=== PATIENT | male | born 2000 | race Two or more races ===

== ENCOUNTER 2022-08-16 13:26 | Inpatient (IN) | payer OTHER ==
[2022-08-16 14:45] VITALS: BMI 19.9
[2022-08-16] MEDS ORDERED: MAGNESIUM HYDROX 2400MG/30ML ORAL SUSPENSION 30 ML CUP PO PRN (15:53)
[2022-08-16] MEDS ORDERED: POLYETHYLENE GLYCOL (HEALTHYLAX) 3350 17 GM PACKET PO PRN (15:53)
[2022-08-16] MEDS ORDERED: guaiFENesin 200 MG/10 ML 10 ML UNIT-DOSE CUPS PO PRN (15:53)
[2022-08-16] MEDS ORDERED: ACETAMINOPHEN 325 MG TABLET (FP) PO PRN (15:53)
[2022-08-16] MEDS ORDERED: NICOTINE POLACRILEX 2 MG GUM BC PRN (15:53)
[2022-08-16] MEDS ORDERED: LOPERAMIDE HCL 2 MG CAPSULE PO PRN (15:53)
[2022-08-16] MEDS ORDERED: MAG HYDROX/AL HYDROX/SIMETH 30 ML UNIT-DOSE CUP PO PRN (15:53)
[2022-08-16] MEDS ORDERED: P-EPHED 60MG/TRIPROLIDI 2.5MG TABLET PO PRN (15:53)
[2022-08-16 17:52] LABS: HEMATOCRIT 40.2 % (35.4-49); HEMOGLOBIN 13.7 GM/dL (11.7-16.9); MCH 31.9 pg (25.7-33.7); MCHC 34.1 g/dl (32.0-35.9); MEAN CELL VOLUME 93.5 fl (80-96); MEAN PLT VOLUME 8.2 fl (7.5-11.1); PLATELET COUNT 321 10^3/uL (134-434); RBC 4.29 M/mm3 (4.00-5.60); RDW 13.9 % (11.9-15.9); WHITE BLOOD COUNT 6.3 K/mm3 (4.0-10.0)
[2022-08-16 18:07] LABS: BLOOD UREA NITROGEN 9.3 mg/dL (7-18)
[2022-08-16 18:09] LABS: CALCIUM 9.8 mg/dL (8.5-10.1)
[2022-08-16 18:10] LABS: TOT PROT 7.4 g/dl (6.4-8.2)
[2022-08-16 18:12] LABS: CREATININE 0.8 mg/dL (0.55-1.3)
[2022-08-16 18:13] LABS: BILIRUBIN,TOTAL 0.7 mg/dL (0.2-1)
[2022-08-16 18:30] LABS: SYPHILIS W/ RPR CONF NON-REACTIVE (NONREACTIVE)
[2022-08-16] MEDS ORDERED: MELATONIN 5 MG TABLETS ONE (22:34)
[2022-08-16] MEDS: THIAMINE HCL 100 MG TABLET (FP) PO SCH (22:39)
[2022-08-16] MEDS: PRENATAL VITAMINS W/ FOLIC ACID TABLET (FP) PO SCH (22:39)
[2022-08-16] MEDS: MELATONIN 5 MG TABLETS PO SCH (22:39)
[2022-08-16] MEDS ORDERED: TUBERCULIN PPD 5 TU/0.1ML VIAL ID ONE (22:55)
[2022-08-16] MEDS: NICOTINE 7 MG/24 HOURS TOPICAL PATCH TD SCH (22:57)
[2022-08-16] MEDS: NICOTINE 10 MG CARTRIDGE (INHALER) IH PRN (22:57)
[2022-08-17] MEDS ORDERED: TUBERCULIN PPD 5 TU/0.1ML VIAL ID ONE (00:24)
[2022-08-17] MEDS: NICOTINE 7 MG/24 HOURS TOPICAL PATCH TD SCH (09:49)
[2022-08-17] MEDS: PRENATAL VITAMINS W/ FOLIC ACID TABLET (FP) PO SCH (09:49)
[2022-08-17 11:07] LABS: PH,URINE 5.5 (5.0-8.0); URINE APPEARANCE CLEAR; URINE BILIRUBIN NEGATIVE (NEGATIVE); URINE COLOR YELLOW; URINE GLUCOSE (UA) NEGATIVE (NEGATIVE); URINE KETONE NEGATIVE (NEGATIVE); URINE LEUK ESTERASE NEGATIVE (NEGATIVE); URINE NITRITE NEGATIVE (NEGATIVE); URINE PROTEIN NEGATIVE (NEGATIVE); URINE UROBILINOGEN 0.2 mg/dL (0.2-1.0)
[2022-08-17] MEDS: THIAMINE HCL 100 MG TABLET (FP) PO SCH (21:15)
[2022-08-17] MEDS: MELATONIN 5 MG TABLETS PO SCH (21:15)
[2022-08-17] MEDS: hydrOXYzine PAMOATE 25 MG CAPSULE (FP) PO PRN (21:15)
[2022-08-18] MEDS: IBUPROFEN 400 MG TABLET (FP) PO PRN (05:06)
[2022-08-18] MEDS: NICOTINE 7 MG/24 HOURS TOPICAL PATCH TD SCH (11:15)
[2022-08-18] MEDS: PRENATAL VITAMINS W/ FOLIC ACID TABLET (FP) PO SCH (11:15)
[2022-08-18] MEDS: BENZOCAINE/MENTHOL (CHLORASEPTIC ) LOZENGE MM PRN (12:01)
[2022-08-18] MEDS: MELATONIN 5 MG TABLETS PO SCH (21:34)
[2022-08-18] MEDS: THIAMINE HCL 100 MG TABLET (FP) PO SCH (21:34)
[2022-08-18] MEDS: hydrOXYzine PAMOATE 25 MG CAPSULE (FP) PO PRN (21:34)
[2022-08-19] MEDS ORDERED: MELATONIN 5 MG TABLETS PO ONE (01:22)
[2022-08-19] MEDS ORDERED: hydrOXYzine PAMOATE 25 MG CAPSULE (FP) PO ONE (01:23)
[2022-08-19] MEDS: BENZOCAINE/MENTHOL (CHLORASEPTIC ) LOZENGE MM PRN (01:36)
[2022-08-19] MEDS: PRENATAL VITAMINS W/ FOLIC ACID TABLET (FP) PO SCH (10:27)
[2022-08-19] MEDS: NICOTINE 7 MG/24 HOURS TOPICAL PATCH TD SCH (10:27)
[2022-08-19] MEDS: IBUPROFEN 400 MG TABLET (FP) PO PRN (10:30)
[2022-08-19] MEDS: NICOTINE 10 MG CARTRIDGE (INHALER) IH PRN (10:33)
[2022-08-19] MEDS: hydrOXYzine PAMOATE 25 MG CAPSULE (FP) PO PRN (21:37)
[2022-08-19] MEDS: THIAMINE HCL 100 MG TABLET (FP) PO SCH (21:37)
[2022-08-19] MEDS: SUVOREXANT 10 MG TABLET PO PRN (21:39)
[2022-08-20] MEDS: NICOTINE 7 MG/24 HOURS TOPICAL PATCH TD SCH (11:08)
[2022-08-20] MEDS: PRENATAL VITAMINS W/ FOLIC ACID TABLET (FP) PO SCH (11:09)
[2022-08-20] MEDS: THIAMINE HCL 100 MG TABLET (FP) PO SCH (21:27)
[2022-08-20] MEDS: SUVOREXANT 10 MG TABLET PO PRN (21:28)
[2022-08-21] MEDS: NICOTINE 7 MG/24 HOURS TOPICAL PATCH TD SCH (10:34)
[2022-08-21] MEDS: PRENATAL VITAMINS W/ FOLIC ACID TABLET (FP) PO SCH (10:34)
[2022-08-21] MEDS ORDERED: SUVOREXANT 10 MG TABLET PO PRN (22:00)
[2022-08-21] MEDS ORDERED: MELATONIN 5 MG TABLETS PO SCH (22:21)
[2022-08-21] MEDS: MELATONIN 5 MG TABLETS PO SCH (22:30)
[2022-08-21] MEDS: THIAMINE HCL 100 MG TABLET (FP) PO SCH (22:31)
[2022-08-22] MEDS: PRENATAL VITAMINS W/ FOLIC ACID TABLET (FP) PO SCH (10:13)
[2022-08-22] MEDS: NICOTINE 7 MG/24 HOURS TOPICAL PATCH TD SCH (10:13)
[2022-08-22] MEDS: NICOTINE 10 MG CARTRIDGE (INHALER) IH PRN (13:12)
[2022-08-22] MEDS: LACTULOSE 20 GM/30 ML UDC (FOR ORAL USE ONLY) PO SCH ×2 (13:12→21:10)
[2022-08-22] MEDS: MELATONIN 5 MG TABLETS PO SCH (21:09)
[2022-08-22] MEDS: THIAMINE HCL 100 MG TABLET (FP) PO SCH (21:10)
[2022-08-22] MEDS ORDERED: MELATONIN 5 MG TABLETS PO SCH (22:00)
[2022-08-23] MEDS: LACTULOSE 20 GM/30 ML UDC (FOR ORAL USE ONLY) PO SCH ×3 (06:29→21:40)
[2022-08-23] MEDS: PRENATAL VITAMINS W/ FOLIC ACID TABLET (FP) PO SCH (09:49)
[2022-08-23] MEDS: NICOTINE 7 MG/24 HOURS TOPICAL PATCH TD SCH (09:49)
[2022-08-23] MEDS ORDERED: ONDANSETRON *ODT* 4 MG TABLET SL PRN (11:36)
[2022-08-23] MEDS: hydrOXYzine PAMOATE 25 MG CAPSULE (FP) PO PRN (13:02)
[2022-08-23] MEDS: hydrOXYzine PAMOATE 50 MG CAPSULE (FP) PO PRN (20:15)
[2022-08-23] MEDS: THIAMINE HCL 100 MG TABLET (FP) PO SCH (21:40)
[2022-08-23] MEDS ORDERED: SUVOREXANT 15 MG TABLET PO PRN (22:00)
[2022-08-24] MEDS: LACTULOSE 20 GM/30 ML UDC (FOR ORAL USE ONLY) PO SCH ×3 (06:28→22:17)
[2022-08-24] MEDS: NICOTINE 7 MG/24 HOURS TOPICAL PATCH TD SCH (10:00)
[2022-08-24] MEDS: PRENATAL VITAMINS W/ FOLIC ACID TABLET (FP) PO SCH ×2 (10:00→10:24)
[2022-08-24] MEDS: NICOTINE 10 MG CARTRIDGE (INHALER) IH PRN (13:44)
[2022-08-24] MEDS ORDERED: SUVOREXANT 15 MG TABLET PO PRN (22:00)
[2022-08-24] MEDS: THIAMINE HCL 100 MG TABLET (FP) PO SCH (22:17)
[2022-08-24] MEDS: hydrOXYzine PAMOATE 50 MG CAPSULE (FP) PO PRN (22:19)
[2022-08-24] MEDS: SUVOREXANT 10 MG TABLET PO PRN (22:22)
[2022-08-25] MEDS: LACTULOSE 20 GM/30 ML UDC (FOR ORAL USE ONLY) PO SCH ×3 (06:12→22:03)
[2022-08-25] MEDS: NICOTINE 7 MG/24 HOURS TOPICAL PATCH TD SCH (10:01)
[2022-08-25] MEDS: PRENATAL VITAMINS W/ FOLIC ACID TABLET (FP) PO SCH (10:01)
[2022-08-25] MEDS: THIAMINE HCL 100 MG TABLET (FP) PO SCH (22:03)
[2022-08-25] MEDS: SUVOREXANT 10 MG TABLET PO PRN (22:03)
[2022-08-25] MEDS: hydrOXYzine PAMOATE 50 MG CAPSULE (FP) PO PRN (22:04)
[2022-08-26] MEDS: LACTULOSE 20 GM/30 ML UDC (FOR ORAL USE ONLY) PO SCH ×3 (06:11→22:15)
[2022-08-26 07:55] VITALS: RESP 16
[2022-08-26] MEDS: NICOTINE 7 MG/24 HOURS TOPICAL PATCH TD SCH (10:22)
[2022-08-26] MEDS: PRENATAL VITAMINS W/ FOLIC ACID TABLET (FP) PO SCH (10:22)
[2022-08-26] MEDS: THIAMINE HCL 100 MG TABLET (FP) PO SCH (22:10)
[2022-08-26] MEDS: hydrOXYzine PAMOATE 50 MG CAPSULE (FP) PO PRN (22:12)
[2022-08-26] MEDS: SUVOREXANT 10 MG TABLET PO PRN (22:12)
[2022-08-27] MEDS: LACTULOSE 20 GM/30 ML UDC (FOR ORAL USE ONLY) PO SCH (07:00)
[2022-08-27 08:53] VITALS: BP 117/78; PULSE 85; TEMP 98
== END 2022-08-27 09:26 | disposition home or self-care (01) | DRG 772 ==
LOC: YASAS 13:26 → Y3W 21:33 → Y5N 08-19 01:03 → Y3W 08-20 11:56
PROVIDERS: ADMIT Allergy & Immunology; ATTEND Psychiatry & Neurology Pain Medicine
PROC: HZ42ZZZ Group Counseling for Substance Abuse Treatment, Cognitive-Behavioral (ICD-10-PCS; principal; 2022-08-16)
DX: F11.20 Opioid dependence, uncomplicated (principal); F14.20 Cocaine dependence, uncomplicated; F12.20 Cannabis dependence, uncomplicated; F17.210 Nicotine dependence, cigarettes, uncomplicated; F19.282 Other psychoactive substance dependence with psychoactive substance-induced sleep disorder; E72.20 Disorder of urea cycle metabolism, unspecified; B18.2 Chronic viral hepatitis C; R74.8 Abnormal levels of other serum enzymes
CPT/HCPCS: 36415; 80053; 81003; 82140; 85027; 86780; 86803; 87522; 87811; C9803-CS; Q0162; U0003; U0005

== ENCOUNTER 2023-02-21 20:04 | Inpatient (IN) | payer OTHER ==
[2023-02-21 21:22] VITALS: BMI 18.8
[2023-02-21] MEDS ORDERED: NALOXONE HCL 0.4 MG/ML VIAL IM PRN (21:45)
[2023-02-21] MEDS ORDERED: methaDONE HCL 10 MG TABLET (FOR DETOX USE ONLY) PO ONE (21:45)
[2023-02-21] MEDS ORDERED: DICYCLOMINE HCL 10 MG CAPSULE PO PRN (21:45)
[2023-02-21] MEDS ORDERED: MAGNESIUM HYDROX 2400MG/30ML ORAL SUSPENSION 30 ML CUP PO PRN (21:45)
[2023-02-21] MEDS ORDERED: BENZONATATE 200 MG CAPSULE PO PRN (21:45)
[2023-02-21] MEDS ORDERED: LOPERAMIDE HCL 2 MG CAPSULE PO PRN (21:45)
[2023-02-21] MEDS ORDERED: ACETAMINOPHEN 325 MG TABLET (FP) PO PRN (21:45)
[2023-02-21] MEDS ORDERED: guaiFENesin 600 MG TABLET.ER (FP) PO PRN (21:45)
[2023-02-21] MEDS ORDERED: NICOTINE POLACRILEX 2 MG GUM BUC PRN (21:45)
[2023-02-21] MEDS ORDERED: cloNIDine HCL 0.1 MG TABLET PO PRN (21:45)
[2023-02-21] MEDS ORDERED: BENZOCAINE/MENTHOL (CHLORASEPTIC ) LOZENGE MM PRN (21:45)
[2023-02-21] MEDS ORDERED: NALOXONE HCL (KLOXXADO) 8 MG SPRAY NS PRN (21:45)
[2023-02-21] MEDS ORDERED: IBUPROFEN 400 MG TABLET (FP) PO PRN (21:45)
[2023-02-21] MEDS ORDERED: POLYETHYLENE GLYCOL (HEALTHYLAX) 3350 17 GM PACKET PO PRN (21:45)
[2023-02-21] MEDS ORDERED: ONDANSETRON *ODT* 4 MG TABLET SL PRN (21:45)
[2023-02-21] MEDS ORDERED: MAG HYDROX/AL HYDROX/SIMETH 30 ML UNIT-DOSE CUP PO PRN (21:45)
[2023-02-21] MEDS ORDERED: IBUPROFEN 600 MG TABLET (FP) PO PRN (21:45)
[2023-02-21] MEDS ORDERED: BISMUTH SUBSALICYLATE 524 MG/30 ML PO PRN (21:45)
[2023-02-21] MEDS ORDERED: methaDONE HCL 10 MG TABLET (FOR DETOX USE ONLY) ONE (23:10)
[2023-02-21] MEDS: MELATONIN 5 MG TABLETS PO SCH (23:41)
[2023-02-21] MEDS: METHOCARBAMOL 500 MG TABLET PO PRN (23:41)
[2023-02-21] MEDS: THIAMINE HCL 100 MG TABLET (FP) PO SCH (23:41)
[2023-02-22] MEDS: PRENATAL VITAMINS W/ FOLIC ACID TABLET (FP) PO SCH (10:24)
[2023-02-22] MEDS: NICOTINE 14 MG/24 HOURS TOPICAL PATCH TD SCH (10:25)
[2023-02-22 14:00] LABS: HEMATOCRIT 44.6 % (35.4-49); HEMOGLOBIN 14.4 GM/dL (11.7-16.9); MCH 31.3 pg (25.7-33.7); MCHC 32.4 g/dl (32.0-35.9); MEAN CELL VOLUME 96.8 fl (80-96); MEAN PLT VOLUME 9.2 fl (7.5-11.1); PLATELET COUNT 263 10^3/uL (134-434); RBC 4.61 M/mm3 (4.00-5.60); RDW 13.5 % (11.9-15.9); WHITE BLOOD COUNT 7.6 K/mm3 (4.0-10.0)
[2023-02-22 14:04] LABS: POTASSIUM 4.5 mmol/L (3.5-5.1)
[2023-02-22 14:20] LABS: ALBUMIN 3.4 g/dl (3.4-5.0); CREATININE 0.6 mg/dL (0.55-1.3)
[2023-02-22 14:21] LABS: BILIRUBIN,TOTAL 0.4 mg/dL (0.2-1); BLOOD UREA NITROGEN 10.6 mg/dL (7-18)
[2023-02-22 14:22] LABS: CALCIUM 9.3 mg/dL (8.5-10.1)
[2023-02-22] MEDS: METHOCARBAMOL 500 MG TABLET PO PRN ×2 (17:11→22:16)
[2023-02-22] MEDS ORDERED: diazePAM 5 MG TABLET PO ONE (18:28)
[2023-02-22] MEDS: MELATONIN 5 MG TABLETS PO SCH (22:14)
[2023-02-22] MEDS: THIAMINE HCL 100 MG TABLET (FP) PO SCH (22:15)
[2023-02-23] MEDS ORDERED: methaDONE HCL 10 MG TABLET (FOR DETOX USE ONLY) PO ONE (10:00)
[2023-02-23] MEDS: NICOTINE 14 MG/24 HOURS TOPICAL PATCH TD SCH (10:20)
[2023-02-23] MEDS: PRENATAL VITAMINS W/ FOLIC ACID TABLET (FP) PO SCH (10:20)
[2023-02-23] MEDS: MELATONIN 5 MG TABLETS PO SCH (22:26)
[2023-02-23] MEDS: THIAMINE HCL 100 MG TABLET (FP) PO SCH (22:26)
[2023-02-24] MEDS: PRENATAL VITAMINS W/ FOLIC ACID TABLET (FP) PO SCH (10:06)
[2023-02-24] MEDS: NICOTINE 14 MG/24 HOURS TOPICAL PATCH TD SCH (10:21)
[2023-02-24] MEDS: METHOCARBAMOL 500 MG TABLET PO PRN (21:38)
[2023-02-24] MEDS: MELATONIN 5 MG TABLETS PO SCH (21:38)
[2023-02-24] MEDS: THIAMINE HCL 100 MG TABLET (FP) PO SCH (21:38)
[2023-02-25] MEDS ORDERED: methaDONE HCL 10 MG TABLET (FOR DETOX USE ONLY) PO ONE (10:00)
[2023-02-25] MEDS: PRENATAL VITAMINS W/ FOLIC ACID TABLET (FP) PO SCH (10:12)
[2023-02-25] MEDS: NICOTINE 14 MG/24 HOURS TOPICAL PATCH TD SCH (10:14)
[2023-02-25] MEDS: THIAMINE HCL 100 MG TABLET (FP) PO SCH (22:17)
[2023-02-25] MEDS: METHOCARBAMOL 500 MG TABLET PO PRN (22:17)
[2023-02-25] MEDS: MELATONIN 5 MG TABLETS PO SCH (22:57)
[2023-02-26] MEDS: METHOCARBAMOL 500 MG TABLET PO PRN (05:29)
[2023-02-26 06:22] VITALS: RESP 16
[2023-02-26] MEDS: PRENATAL VITAMINS W/ FOLIC ACID TABLET (FP) PO SCH (10:13)
[2023-02-26] MEDS: NICOTINE 14 MG/24 HOURS TOPICAL PATCH TD SCH (10:13)
[2023-02-26 12:58] VITALS: BP 94/58; PULSE 89; TEMP 97.3
[2023-02-26 14:03] LABS: POTASSIUM 4.6 mmol/L (3.5-5.1)
[2023-02-26 14:05] LABS: BLOOD UREA NITROGEN 11.3 mg/dL (7-18); CALCIUM 9.3 mg/dL (8.5-10.1)
[2023-02-26 14:08] LABS: CREATININE 0.7 mg/dL (0.55-1.3)
== END 2023-02-26 14:48 | disposition other institution (70) | DRG 773 ==
LOC: YASAS 20:04 → Y3N 23:02
PROVIDERS: ADMIT Allergy & Immunology; ATTEND Allergy & Immunology
PROC: HZ2ZZZZ Detoxification Services for Substance Abuse Treatment (ICD-10-PCS; principal; 2023-02-21)
DX: F11.23 Opioid dependence with withdrawal (principal); F14.20 Cocaine dependence, uncomplicated; F17.210 Nicotine dependence, cigarettes, uncomplicated; F19.982 Other psychoactive substance use, unspecified with psychoactive substance-induced sleep disorder; F19.94 Other psychoactive substance use, unspecified with psychoactive substance-induced mood disorder; R74.01 Elevation of levels of liver transaminase levels; Z56.0 Unemployment, unspecified; Z59.00 Homelessness unspecified
CPT/HCPCS: 36415; 80048; 80053; 85027; 86780; 87635; Q0162

== ENCOUNTER 2023-02-26 14:47 | Inpatient (IN) | payer OTHER ==
[2023-02-26] MEDS ORDERED: BENZONATATE 200 MG CAPSULE PO PRN (16:03)
[2023-02-26] MEDS ORDERED: IBUPROFEN 600 MG TABLET (FP) PO PRN (16:03)
[2023-02-26] MEDS ORDERED: NICOTINE 10 MG CARTRIDGE (INHALER) IH PRN (16:03)
[2023-02-26] MEDS ORDERED: guaiFENesin 600 MG TABLET.ER (FP) PO PRN (16:03)
[2023-02-26] MEDS ORDERED: ACETAMINOPHEN 325 MG TABLET (FP) PO PRN (16:03)
[2023-02-26] MEDS ORDERED: MAG HYDROX/AL HYDROX/SIMETH 30 ML UNIT-DOSE CUP PO PRN (16:03)
[2023-02-26] MEDS ORDERED: LOPERAMIDE HCL 2 MG CAPSULE PO PRN (16:03)
[2023-02-26] MEDS ORDERED: METHOCARBAMOL 500 MG TABLET PO PRN (16:03)
[2023-02-26] MEDS ORDERED: NICOTINE 14 MG/24 HOURS TOPICAL PATCH TD PRN (16:03)
[2023-02-26] MEDS ORDERED: MAGNESIUM HYDROX 2400MG/30ML ORAL SUSPENSION 30 ML CUP PO PRN (16:03)
[2023-02-26] MEDS ORDERED: POLYETHYLENE GLYCOL (HEALTHYLAX) 3350 17 GM PACKET PO PRN (16:03)
[2023-02-26] MEDS ORDERED: BENZOCAINE/MENTHOL (CHLORASEPTIC ) LOZENGE MM PRN (16:03)
[2023-02-26] MEDS ORDERED: AMMONIUM LACTATE 12% LOTION 225 GM BOTTLE TP PRN (16:03)
[2023-02-26] MEDS ORDERED: COLLOIDAL OATMEAL 1 BAR EACH TP PRN (16:03)
[2023-02-26] MEDS ORDERED: IBUPROFEN 400 MG TABLET (FP) PO PRN (16:03)
[2023-02-26] MEDS ORDERED: NALOXONE HCL 0.4 MG/ML VIAL IVPUSH PRN (16:03)
[2023-02-26] MEDS ORDERED: hydrOXYzine PAMOATE 25 MG CAPSULE (FP) PO PRN (16:03)
[2023-02-26] MEDS ORDERED: NALOXONE HCL (KLOXXADO) 8 MG SPRAY NS PRN (16:03)
[2023-02-26] MEDS: THIAMINE HCL 100 MG TABLET (FP) PO SCH (21:42)
[2023-02-26] MEDS: SUVOREXANT 10 MG TABLET PO PRN (21:42)
[2023-02-26] MEDS: NICOTINE POLACRILEX 4 MG GUM BUC PRN (21:44)
[2023-02-26] MEDS ORDERED: MELATONIN 5 MG TABLETS PO SCH (22:00)
[2023-02-27] MEDS: PRENATAL VITAMINS W/ FOLIC ACID TABLET (FP) PO SCH (09:01)
[2023-02-27] MEDS: SUVOREXANT 10 MG TABLET PO PRN (21:33)
[2023-02-27] MEDS: THIAMINE HCL 100 MG TABLET (FP) PO SCH (21:34)
[2023-02-27] MEDS: NICOTINE POLACRILEX 4 MG GUM BUC PRN (22:30)
[2023-02-28 07:16] VITALS: BP 95/55; PULSE 64; RESP 18; TEMP 96.9
[2023-02-28] MEDS: PRENATAL VITAMINS W/ FOLIC ACID TABLET (FP) PO SCH (10:08)
[2023-02-28] MEDS ORDERED: LACTULOSE 20 GM/30 ML UDC (FOR ORAL USE ONLY) PO SCH (14:00)
[2023-02-28 15:22] LABS: INR 1.03 (0.83-1.09); PROTHROMBIN TIME (PATIENT) 11.9 SEC (9.7-13.0)
[2023-02-28 15:35] LABS: POTASSIUM 5.1 mmol/L (3.5-5.1)
[2023-02-28 15:43] LABS: ALBUMIN 3.8 g/dl (3.4-5.0); BLOOD UREA NITROGEN 10.1 mg/dL (7-18); CALCIUM 9.7 mg/dL (8.5-10.1)
[2023-02-28 15:46] LABS: CREATININE 0.9 mg/dL (0.55-1.3)
[2023-02-28 15:48] LABS: BILIRUBIN,TOTAL 0.3 mg/dL (0.2-1)
[2023-02-28] MEDS ORDERED: SUVOREXANT 15 MG TABLET PO PRN (22:00)
== END 2023-02-28 14:54 | disposition left against medical advice (07) | DRG 770 ==
LOC: YASAS 14:47 → Y3E 14:48
PROVIDERS: ADMIT Allergy & Immunology; ATTEND Psychiatry & Neurology Pain Medicine
PROC: HZ42ZZZ Group Counseling for Substance Abuse Treatment, Cognitive-Behavioral (ICD-10-PCS; principal; 2023-02-26)
DX: F11.20 Opioid dependence, uncomplicated (principal); F14.20 Cocaine dependence, uncomplicated; F17.210 Nicotine dependence, cigarettes, uncomplicated; F19.982 Other psychoactive substance use, unspecified with psychoactive substance-induced sleep disorder; F19.94 Other psychoactive substance use, unspecified with psychoactive substance-induced mood disorder; E72.20 Disorder of urea cycle metabolism, unspecified; Z20.822 Contact with and (suspected) exposure to COVID-19; Z56.0 Unemployment, unspecified; Z59.00 Homelessness unspecified
CPT/HCPCS: 36415; 80053; 82140; 85610; 86803; 87522; 87635